=== PATIENT | male | born 1980 | race Caucasian/White ===

== ENCOUNTER 2019-07-01 11:45 | Emergency (ER) | payer BC ==
[~2019-07-01] VITALS: Ht 175.3 cm; Wt 86.2 kg
--- NOTE | 2019-07-01 11:58 | PHYS DOC ---
Past Medical History Past Surgical History: Cholecystectomy Alcohol Use: None Adult General Chief Complaint Chief Complaint: MECHANICAL FALL HPI HPI Patient is a 38-year-old male, who was hanging holiday lights on his house, when the ladder gave way and he fell approximately 10 feet to the ground, landing on the concrete. He struck his forehead on the ground, and sustained a laceration on the right side of his forehead. He landed on his left side and is complaining of pain in his left shoulder, elbow, wrist, and left ankle. He denies loss of consciousness, denies any numbness, weakness. He denies any neck pain or back pain, or any other painful areas. Palpation and movement of the affected areas worsen his pain. There are no alleviating factors to his symptoms. Patient states his last tetanus was approximately 5 years ago. Review of Systems Review of Systems Constitutional: Denies fever or chills [] Eyes: Denies change in visual acuity, redness, or eye pain [] HENT: Denies nasal congestion or sore throat [] Respiratory: Denies cough or shortness of breath [] Cardiovascular: The patient denies any shortness of breath, chest pain, palpitations, or orthopnea [] GI: Denies abdominal pain, nausea, vomiting, bloody stools or diarrhea [] : Denies dysuria or hematuria [] Musculoskeletal: Denies back pain or joint pain other than as noted in the history of present illness [] Integument: Denies rash or skin lesions [] Neurologic: Denies headache, focal weakness or sensory changes [] Endocrine: Denies polyuria or polydipsia [] All other systems were reviewed and found to be within normal limits, except as documented in this note. Current Medications Current Medications Current Medications Medications (Trade) Dose Ordered Sig/[facility] Start Time Stop Time Status Last Admin Dose Admin Bacitracin (Bacitracin Zinc Oint Pkt) 1 pkt 1X ONCE 07/01/19 13:30 07/01/19 13:31 DC 07/01/19 13:25 1 PKT Lidocaine/ Epinephrine (LIDOCAINE 1%-EPI 1:100,000 Multi-Dose) 20 ml 1X ONCE 07/01/19 12:30 07/01/19 12:31 DC 07/01/19 13:08 20 ML Allergies Allergies Allergies Coded Allergies Type Severity Reaction Last Updated Verified No Known Drug Allergies 07/01/19 No Physical Exam Physical Exam PHYSICAL EXAM: CONSTITUTIONAL: Well developed, well nourished HEAD: normocephalic, there is a 5 cm abrasion/laceration on the right forehead, the remainder of the cranium is atraumatic EENT: PERRL, EOMI. Conjunctivae normal color, sclerae non-icteric; moist mucous membranes. NECK: Supple, non-tender; no meningismus.There is full, painless range of motion of the cervical spine, without any focal bony midline tenderness to palpation. LUNGS: Lungs CTA, breathing even and unlabored. Normal air movement. HEART: Regular rate and rhythm, no murmur CHEST: No deformity; non-tender ABDOMEN: The abdomen is soft, and non-tender, no masses or bruits. EXTREM: Normal ROM; no deformity, no calf tenderness. Normal pulses palpable in all extremities. There is no pedal edema. There is tenderness to palpation in the left shoulder, elbow, and left wrist without any deformity. There is mild soft tissue swelling to the left ankle as well as tenderness to palpation without any deformity. There is no tenderness to palpation to the left foot. The remainder the extremities are atraumatic and nontender. SKIN: No rash; no diaphoresis NEURO: Alert; normal speech and cognition; CN's grossly intact; strength grossly intact without focal deficit. BACK: No CVA TTP.There is no bony tenderness to palpation of the thoracic or lumbar spine. Current Patient Data Vital Signs Vital Signs Date Time Temp Pulse Resp B/P (MAP) Pulse Ox O2 Delivery O2 Flow Rate FiO2 07/01/19 13:46 60 19 117/71 (86) 98 Room Air 07/01/19 11:45 97.7 97.7 EKG EKG [] Radiology/Procedures Radiology/Procedures PROCEDURE: ANKLE LEFT 3V Three-view left ankle dated 07/01/2019. No comparison available. Clinical data indication: Pain after fall. FINDINGS: 3 views left ankle show normal bony alignment. There is some bony fragmentation near the lateral calcaneal process seen only on the AP view. Distal tibia and fibular intact. There is diffuse soft tissue swelling. No definite ankle joint effusion or loose body. IMPRESSION: Possible avulsion fracture at the lateral process of the calcaneus.[] PROCEDURE: ELBOW LEFT 3V Three-view left shoulder, 3 views left elbow and 3 views left wrist dated 07/01/2019. No comparison available. CLINICAL INDICATION: Pain after injury. FINDINGS: 3 views left shoulder show normal bony alignment. No displaced fracture. No acute osseous or articular abnormality. No periostitis or bone destruction. 3 views left elbow show normal bony alignment. No displaced fracture. No fat pad elevation to suggest joint effusion. No acute osseous or articular abnormality. 3 views of the left wrist show normal bony alignment. No displaced fracture. No acute osseous or articular abnormality. IMPRESSION: No acute findings. PROCEDURE: CT HEAD WO CONTRAST EXAM: CT HEAD WITHOUT CONTRAST. HISTORY: Fall, head injury. TECHNIQUE: Computed tomography of the head was performed without intravenous contrast. One or more of the following individualized dose reduction techniques were utilized for this examination: 1. Automated exposure control. 2. Adjustment of the mA and/or kV according to patient size. 3. Use of iterative reconstruction technique. COMPARISON: None. FINDINGS: There is no intracranial hemorrhage. Dean-white differentiation is preserved. The ventricles are normal in size and position. The visualized paranasal sinuses appear clear. The orbits are unremarkable. The temporal bones are unremarkable. The calvarium reveals no suspicious lesions. IMPRESSION: 1. No acute intracranial findings. PROCEDURE: LUMBAR SPINE 2-3V 3 views lumbar spine dated 07/01/2019. No comparison available. Clinical data indication: Pain after fall. FINDINGS: 3 views lumbar spine show normal sagittal alignment. Vertebral body heights are maintained. Mild endplate hypertrophic changes throughout. Mild arthrosis lower lumbar apophyseal joints. IMPRESSION: No acute radiographic abnormality. Mild lower lumbar spondylosis. PROCEDURE: CT LOWER EXTREMITY WO LEFT CT LOWER EXTREMITY WO LEFT dated 07/01/2019 1:53 PM Indication: Pain after injury... Comparison: No comparison is available. Technique: Contiguous axial imaging of the left ankle performed with thin cut coronal and sagittal reconstruction. One or more of the following individualized dose reduction techniques were utilized for this examination: 1. Automated exposure control 2. Adjustment of the mA and/or kV according to patient size 3. Use of iterative reconstruction technique Findings: There is a comminuted fracture off the inferior lateral aspect of the talus . Fracture line extends to the posterior subtalar joint and a small fragment extends into the sinus tarsi. There also may be a small bone fragment along the posterior subtalar joint posteriorly with fracture fragments extending along the inferior tip of the fibula.. No definite associated calcaneal fracture. Small bony fragments along the inferior margin of the cuboid bone on sagittal image 21 could represent ossicles within the peroneal tendon. Distal tibia and fibular are otherwise intact. Talar dome is intact. No additional fractures are seen. There is focal soft tissue swelling laterally. No ankle joint effusion. Mild edema within the plantar subcutaneous tissues. IMPRESSION: 1. Comminuted intra-articular fracture of the lateral talar process. Please see above report for details. Course & Med Decision Making Course & Med Decision Making Pertinent Labs and Imaging studies reviewed. (See chart for details) [] LACERATION REPAIR PROCEDURE NOTE: The 5 centimeter forehead abrasion/ laceration was irrigated copiously with normal saline, anesthetized with 1% lidocaine with epinephrine, prepped with Betadine, and draped with sterile drapes. Sterile technique was used. The wound was closed with #13 5-0 running nylon sutures. Good epithelial approximation was obtained. The patient tolerated the procedure well. There was no foreign body visualized in the wound. SPLINT APPLICATION NOTE: A posterior short leg splint was applied using Ortho-Glass, along with a stirrup. Spent was applied by ER nursing staff, and inspected by me post placement, PMS intact. I discussed nonweightbearing status with the patient, wound care, the need for close follow-up and return precautions in detail. 2:45 PM: Patient's condition remained stable. Care was discussed with Dr. Vasquez, orthopedics, who agreed with management and will follow-up with the patient the office. Dragon Disclaimer Dragon Disclaimer This electronic medical record was generated, in whole or in part, using a voice recognition dictation system. Departure Departure Impression: Primary Impression: Talus fracture Additional Impressions: Forehead laceration Accidental fall Closed head injury Disposition: HOME, SELF-CARE Condition: STABLE Referrals: ERIKA CHU MD, JOHN N MD Patient Instructions: Abrasions, Crutch Use, Foot Fracture, Head Injury, Adult, Laceration Care, Adult Scripts Acetaminophen With Codeine (TYLENOL WITH CODEINE #3 TABLET) 1 Each Tablet 1 TAB PO PRN Q6HRS PRN for PAIN, #15 TAB Prov: BIBI NEGRO MD 07/01/19 Problem Qualifiers BIBI NEGRO MD Jul 01, 2019 11:58
--- NOTE | 2019-07-01 12:24 | RAD ---
EXAM: CT HEAD WITHOUT CONTRAST. HISTORY: Fall, head injury. TECHNIQUE: Computed tomography of the head was performed without intravenous contrast. One or more of the following individualized dose reduction techniques were utilized for this examination: 1. Automated exposure control. 2. Adjustment of the mA and/or kV according to patient size. 3. Use of iterative reconstruction technique. COMPARISON: None. FINDINGS: There is no intracranial hemorrhage. Dean-white differentiation is preserved. The ventricles are normal in size and position. The visualized paranasal sinuses appear clear. The orbits are unremarkable. The temporal bones are unremarkable. The calvarium reveals no suspicious lesions. IMPRESSION: 1. No acute intracranial findings. Electronically signed by: Real Chapman MD (07/01/2019 12:21 PM) [facility]
[2019-07-01] MEDS ORDERED: LIDOCAINE 1%/EPI 1:100,000 20 ML VIAL. INJ ONE (12:30)
--- NOTE | 2019-07-01 12:54 | RAD ---
Three-view left shoulder, 3 views left elbow and 3 views left wrist dated 07/01/2019. No comparison available. CLINICAL INDICATION: Pain after injury. FINDINGS: 3 views left shoulder show normal bony alignment. No displaced fracture. No acute osseous or articular abnormality. No periostitis or bone destruction. 3 views left elbow show normal bony alignment. No displaced fracture. No fat pad elevation to suggest joint effusion. No acute osseous or articular abnormality. 3 views of the left wrist show normal bony alignment. No displaced fracture. No acute osseous or articular abnormality. IMPRESSION: No acute findings. Electronically signed by: Daniel Holland MD (07/01/2019 12:51 PM) [facility] [place]
--- NOTE | 2019-07-01 12:54 | RAD ---
Three-view left shoulder, 3 views left elbow and 3 views left wrist dated 07/01/2019. No comparison available. CLINICAL INDICATION: Pain after injury. FINDINGS: 3 views left shoulder show normal bony alignment. No displaced fracture. No acute osseous or articular abnormality. No periostitis or bone destruction. 3 views left elbow show normal bony alignment. No displaced fracture. No fat pad elevation to suggest joint effusion. No acute osseous or articular abnormality. 3 views of the left wrist show normal bony alignment. No displaced fracture. No acute osseous or articular abnormality. IMPRESSION: No acute findings. Electronically signed by: Daniel Holland MD (07/01/2019 12:51 PM) [facility] – [place]
--- NOTE | 2019-07-01 12:54 | RAD ---
Three-view left shoulder, 3 views left elbow and 3 views left wrist dated 07/01/2019. No comparison available. CLINICAL INDICATION: Pain after injury. FINDINGS: 3 views left shoulder show normal bony alignment. No displaced fracture. No acute osseous or articular abnormality. No periostitis or bone destruction. 3 views left elbow show normal bony alignment. No displaced fracture. No fat pad elevation to suggest joint effusion. No acute osseous or articular abnormality. 3 views of the left wrist show normal bony alignment. No displaced fracture. No acute osseous or articular abnormality. IMPRESSION: No acute findings. Electronically signed by: Daniel Holland MD (07/01/2019 12:51 PM) [facility] – [place]
--- NOTE | 2019-07-01 12:55 | RAD ---
Three-view left ankle dated 07/01/2019. No comparison available. Clinical data indication: Pain after fall. FINDINGS: 3 views left ankle show normal bony alignment. There is some bony fragmentation near the lateral calcaneal process seen only on the AP view. Distal tibia and fibular intact. There is diffuse soft tissue swelling. No definite ankle joint effusion or loose body. IMPRESSION: Possible avulsion fracture at the lateral process of the calcaneus. Electronically signed by: Daniel Holland MD (07/01/2019 12:53 PM) [facility] [place]
[2019-07-01] MEDS ORDERED: BACITRACIN TOPICAL OINT PACKET. TP ONE (13:30)
--- NOTE | 2019-07-01 14:23 | RAD ---
CT LOWER EXTREMITY WO LEFT dated 07/01/2019 1:53 PM Indication: Pain after injury... Comparison: No comparison is available. Technique: Contiguous axial imaging of the left ankle performed with thin cut coronal and sagittal reconstruction. One or more of the following individualized dose reduction techniques were utilized for this examination: 1. Automated exposure control 2. Adjustment of the mA and/or kV according to patient size 3. Use of iterative reconstruction technique Findings: There is a comminuted fracture off the inferior lateral aspect of the talus . Fracture line extends to the posterior subtalar joint and a small fragment extends into the sinus tarsi. There also may be a small bone fragment along the posterior subtalar joint posteriorly with fracture fragments extending along the inferior tip of the fibula.. No definite associated calcaneal fracture. Small bony fragments along the inferior margin of the cuboid bone on sagittal image 21 could represent ossicles within the peroneal tendon. Distal tibia and fibular are otherwise intact. Talar dome is intact. No additional fractures are seen. There is focal soft tissue swelling laterally. No ankle joint effusion. Mild edema within the plantar subcutaneous tissues. IMPRESSION: 1. Comminuted intra-articular fracture of the lateral talar process. Please see above report for details. Electronically signed by: Daniel Holland MD (07/01/2019 2:20 PM) [facility] [place]
--- NOTE | 2019-07-01 14:25 | RAD ---
3 views lumbar spine dated 07/01/2019. No comparison available. Clinical data indication: Pain after fall. FINDINGS: 3 views lumbar spine show normal sagittal alignment. Vertebral body heights are maintained. Mild endplate hypertrophic changes throughout. Mild arthrosis lower lumbar apophyseal joints. IMPRESSION: No acute radiographic abnormality. Mild lower lumbar spondylosis. Electronically signed by: Daniel Holland MD (07/01/2019 2:22 PM) [facility] – [place]
[2019-07-01] MEDS ORDERED: ACET-704 PO (14:50)
[2019-07-01 15:11] VITALS: BP 122/20
== END 2019-07-01 15:25 | disposition home or self-care (01) ==
LOC: ER 11:45
DX: S92.142A Displaced dome fracture of left talus, initial encounter for closed fracture (principal); S01.81XA Laceration without foreign body of other part of head, initial encounter; M25.512 Pain in left shoulder; M25.532 Pain in left wrist; W11.XXXA Fall on and from ladder, initial encounter; Y93.89 Activity, other specified; Y92.89 Other specified places as the place of occurrence of the external cause; Y99.8 Other external cause status
CPT/HCPCS: 12013; 29515; 70450; 72100; 73030; 73080; 73110; 73610; 73700; 99285; J3490; 99284-25

== ENCOUNTER 2019-07-08 14:10 | Emergency (ER) | payer BC ==
[~2019-07-08] VITALS: Ht 177.8 cm; Wt 86.2 kg
[~2019-07-08 14:10] MED LIST: ACET-704 PO
[2019-07-08 14:22] VITALS: BP 115/72
--- NOTE | 2019-07-08 14:47 | PHYS DOC ---
Past Medical History Past Medical History: Asthma, Hypothyroid Additional Past Medical Histor: SLEEP APNEA Past Surgical History: Cholecystectomy Additional Past Surgical Histo: L. WRIST, HERNIA Alcohol Use: None Drug Use: None Adult General Chief Complaint Chief Complaint: SUTURE/STAPLE REMOVAL HPI HPI Patient is a 39 year old male who presents with 7 days ago was here after he fell off the ladder while hanging [place] lights. Patient has a laceration that is healed and scabbed over with sutures intact to the right forehead. Patient denies any pain or symptoms of infection. Review of Systems Review of Systems Integument:Right forehead suture removal. Denies rash or skin lesions [] All other systems were reviewed and found to be within normal limits, except as documented in this note. Allergies Allergies Allergies Coded Allergies Type Severity Reaction Last Updated Verified No Known Drug Allergies 07/01/19 No Physical Exam Physical Exam Constitutional: Well developed, well nourished, no acute distress, non-toxic appearance. [] HENT: Normocephalic, atraumatic, bilateral external ears normal, oropharynx moist, no oral exudates, nose normal. [] Eyes: PERRLA, EOMI, conjunctiva normal, no discharge. [] Skin: Right forehead scabbing with sutures intact. Warm, dry, no erythema, no rash. [] Neurologic: Alert and oriented X 3, normal motor function, normal sensory function, no focal deficits noted. [] Psychologic: Affect normal, judgement normal, mood normal. [] Current Patient Data Vital Signs Vital Signs Date Time Temp Pulse Resp B/P (MAP) Pulse Ox O2 Delivery O2 Flow Rate FiO2 07/08/19 14:22 98.6 81 16 115/72 (86) 97 Room Air 98.6 EKG EKG [] Radiology/Procedures Radiology/Procedures [] Course & Med Decision Making Course & Med Decision Making Sutures are intact in the laceration is well-healed. There is a lot of scabbing over the sutures and the patient is currently soaking the scabbing with saline to soften it. There is no redness or signs of infection. Patient denies any pain. Afebrile. 1 long continuous suture is removed from the laceration to the right forehead. Edges are approximated and is well-healed. Dragon Disclaimer Dragon Disclaimer This electronic medical record was generated, in whole or in part, using a voice recognition dictation system. Departure Departure Impression: Primary Impression: Visit for suture removal Disposition: 01 HOME, SELF-CARE Condition: STABLE Referrals: ALFIE WILL DO (PCP) Patient Instructions: Suture Removal-Brief Additional Instructions: Follow up with primary care provider if needed. Keep the area clean and dry. Apply antibiotic ointment to the area. DORA CHOWDHURY APRN Jul 08, 2019 14:47
[2019-07-08] MEDS ORDERED: NEOMY/BACITR/POLYMYXIN OINT PACKET. TP ONE (15:30)
== END 2019-07-08 16:04 | disposition home or self-care (01) ==
LOC: ER 14:10
DX: S01.81XD Laceration without foreign body of other part of head, subsequent encounter (principal); J45.909 Unspecified asthma, uncomplicated; E03.9 Hypothyroidism, unspecified; Z90.49 Acquired absence of other specified parts of digestive tract; G47.30 Sleep apnea, unspecified; W11.XXXD Fall on and from ladder, subsequent encounter
CPT/HCPCS: 99281